=== PATIENT | female | born 1970 | race Caucasian/White ===

== ENCOUNTER 2025-06-20 12:31 | Outpatient (CLI) | payer BC | END 2025-06-20 12:32 | disposition home or self-care (01) | LOC: CSHMAMMO 12:31 | PROVIDERS: ATTEND Internal Medicine | DX: Z12.31 Encounter for screening mammogram for malignant neoplasm of breast (principal); Z80.3 Family history of malignant neoplasm of breast | CPT/HCPCS: 77063; 77067 ==

== ENCOUNTER 2025-06-20 12:59 | Outpatient (CLI) | payer BC | END 2025-06-20 13:00 | disposition home or self-care (01) | LOC: CSHMRI 12:59 | PROVIDERS: ATTEND Internal Medicine | DX: H93.A3 Pulsatile tinnitus, bilateral (principal); R09.89 Other specified symptoms and signs involving the circulatory and respiratory systems; I65.21 Occlusion and stenosis of right carotid artery | CPT/HCPCS: 70544; 70547; 70553; 93880 ==

== ENCOUNTER 2025-06-30 07:25 | Outpatient (CLI) | payer BC ==
[2025-06-30] MEDS ORDERED: Iopamidol 370 76% 100 ML VIAL ONE (10:16)
== END 2025-06-30 07:26 | disposition home or self-care (01) ==
LOC: CSHCT 07:25
PROVIDERS: ATTEND Internal Medicine
DX: I77.3 Arterial fibromuscular dysplasia (principal); I65.21 Occlusion and stenosis of right carotid artery
CPT/HCPCS: 70496; 70498; Q9967